=== PATIENT | male | born 1985 | race Caucasian/White ===

== ENCOUNTER 2016-03-25 20:09 | Emergency (ER) | payer OTHER ==
[~2016-03-25] VITALS: Ht 172.7 cm; Wt 77.1 kg
[~2016-03-25 20:09] MED LIST: HYDR-971 PO; PRED50TA PO
[2016-03-25 21:57] LABS: OBC FLU VALID
--- NOTE | 2016-03-25 22:16 | PHYS DOC ---
Past Medical History Past Medical History: No Pertinent History Past Surgical History: Other Additional Past Surgical Histo: WISDOM TEETH, SKIN GRAPHS, LEFT HAND SX Alcohol Use: None Drug Use: None Adult General Chief Complaint Chief Complaint: GENERALIZED BODY ACHES HPI HPI 30-year-old male presenting the emergency Department generalized body aches feeling generally weak having low-grade fevers the dry cough. Symptoms started on Thursday. He denies nausea or vomiting. Onset Thursday. Location Gen. Duration intermittent. Review of systems is negative for chest pain shortness of breath abdominal pain. Negative for nausea vomiting. All other review of systems is negative unless otherwise noted in history of present illness. Review of Systems Review of Systems see above Allergies Allergies Allergies Coded Allergies Type Severity Reaction Last Updated Verified No Known Drug Allergies 11/08/15 No Physical Exam Physical Exam Constitutional: Well developed, well nourished, no acute distress, non-toxic appearance. HENT: Normocephalic, atraumatic, bilateral external ears normal, oropharynx moist, no oral exudates, nose normal. [] Eyes: PERRLA, EOMI, conjunctiva normal, no discharge. Neck: Normal range of motion, no tenderness, supple, no stridor. [] Cardiovascular:Heart rate regular rhythm, no murmur Lungs & Thorax: Bilateral breath sounds clear to auscultation [] Abdomen: Bowel sounds normal, soft, no tenderness, no masses, no pulsatile masses. Skin: Warm, dry, no erythema, no rash. [] Back: No tenderness, no CVA tenderness. Extremities: No tenderness, no cyanosis, no clubbing, ROM intact, no edema. [] Neurologic: Alert and oriented X 3, normal motor function, normal sensory function, no focal deficits noted. [] Psychologic: Affect normal, judgement normal, mood normal. Current Patient Data Vital Signs Vital Signs Date Time Temp Pulse Resp B/P Pulse Ox O2 Delivery O2 Flow Rate FiO2 03/25/16 22:30 94 20 113/61 100 Room Air 03/25/16 20:30 99.8 99.8 Lab Values Laboratory Tests Test 03/25/16 20:31 Influenza Type A Antigen Negative (NEGATIVE) Influenza Type B Antigen Negative (NEGATIVE) EKG EKG [] Radiology/Procedures Radiology/Procedures [] Course & Med Decision Making Course & Med Decision Making Pertinent Labs and Imaging studies reviewed. (See chart for details) 30-year-old male presenting the emergency department with signs and symptoms suggestive of flu. On evaluation the patient's vital signs showed that he was afebrile. Otherwise unremarkable. Physical exam was unremarkable. Flu swab sent which was negative. Patient was then subsequent discharged home to follow up with PCP. I recommended supportive care including acetaminophen as needed for fever and pain. Dragon Disclaimer Dragon Disclaimer This electronic medical record was generated, in whole or in part, using a voice recognition dictation system. Departure Departure Impression: Primary Impression: URI (upper respiratory infection) Disposition: HOME, SELF-CARE Condition: STABLE Referrals: NO PCP (PCP) MADELEINE MARQUEZ MD Patient Instructions: Upper Respiratory Infection, Adult Additional Instructions: Thank you for allowing us to participate in your care today. Followup with your primary care physician in 3 days if your symptoms do not improve. Return to the emergency department you have any new or concerning findings. This should be evaluated by the primary care physician and any necessary consulting services for continued management within a few days after discharge. Return to emergency room if you have any new or concerning symptoms including but not limited to fever, chills, nausea, vomiting, intractable pain, any new rashes, chest pain, shortness of air, uncontrolled bleeding, difficulty breathing, and/or vision loss. BILL AMARAL MD Mar 25, 2016 22:16
[2016-03-25 22:30] VITALS: BP 113/61
== END 2016-03-25 22:40 | disposition home or self-care (01) ==
LOC: ER 20:09
DX: J06.9 Acute upper respiratory infection, unspecified (principal)
CPT/HCPCS: 87804; 99284

== ENCOUNTER → 2016-07-24 | Outpatient (CLI) | payer OTHER ==
--- NOTE | 2016-07-24 14:19 | KCIC ---
EXAM: Right elbow, 2 views. HISTORY: Pain. COMPARISON: None. FINDINGS: Frontal and lateral views of the right elbow were obtained. There is no fracture, dislocation or subluxation. There is no elbow effusion. IMPRESSION: No acute osseous finding. Electronically signed by: Charlette Simpson MD (07/24/2016 2:16 PM)
== END | disposition home or self-care (01) ==
LOC: KCIC 14:01
PROVIDERS: ATTEND Nurse Practitioner Family
DX: M25.521 Pain in right elbow (principal)
CPT/HCPCS: 73070